=== PATIENT | male | born 1965 | race Caucasian/White ===

== ENCOUNTER 2020-11-16 12:37 | Outpatient (CLI) | payer OTHER, SELFPAY ==
--- NOTE | ~2020-11-16 | MR_ITS ---
EXAMINATION: MR lumbar spine [facility] EXAM DATE: 11/16/2020 13:27 INDICATION: Chronic low back pain. TECHNIQUE: Multi-sequential, multiplanar MR images of the lumbar spine were obtained without contrast . Sagittal T1, T2, T2 fat saturation images. Axial T2 weighted images. There is no prior study for comparison. FINDINGS: There is mild to moderate upper lumbar levoscoliosis. There are no suspicious marrow signal abnormalities. Mild to moderate disc disease at all lumbar levels. There is 3 mm retrolisthesis L3 o n L4. The vertebral bodies are otherwise aligned. Paraspinal soft tissue is unremarkable. The conus medullaris terminates at the L1 level and has normal signal intensity and morphology. Level by level evaluation: T12-L1: Small right central protrusion. Facet arthropathy: Mild bilateral. Neural foraminal stenosis: No stenosis. Central canal stenosis: Mild. L1-L2: There is a mild diffuse disc bulge. Facet arthropathy: Mild to moderate. Neural foraminal stenosis: No stenosis. Central canal stenosis: No stenosis. L2-L3: There is a mild to moderate diffuse disc bulge. Facet arthropathy: Moderate . Ligamentum flavum enlargement. Neural foraminal stenosis: Mild to moderate right. Central canal stenosis: Mild. L3-L4: There is a moderate to large diffuse disc bulge. Facet arthropathy: Moderate to severe . Ligamentum flavum enlargement. Neural foraminal stenosis: Moderate bilateral. Central canal stenosis: Moderate. L4-L5: There is a large diffuse disc bulge. Facet arthropathy: Severe left, moderate right. Neural foraminal stenosis: Severe left, moderate right. Central canal stenosis: Severe. L5-S1: There is a mild diffuse disc bulge. Facet arthropathy: Moderate left, mild right. Neural foraminal stenosis: Moderate left, mild right. Central canal stenosis: Mild. IMPRESSION: 1. L4-5 large disc bulge, severe central canal and left neural foraminal stenosis. 2. Less spondylosis other levels. 3. Mild to moderate lumbar levoscoliosis. Reviewed, dictated and finalized at location B. IMPRESSION: 1. L4-5 large disc bulge, severe central canal and left neural foraminal steno sis. 2. Less spondylosis other levels. 3. Mild to moderate lumbar levoscoliosis.
== END 2020-11-16 12:38 | disposition home or self-care (01) ==
DX: M47.817 Spondylosis without myelopathy or radiculopathy, lumbosacral region (principal); M48.07 Spinal stenosis, lumbosacral region; M47.815 Spondylosis without myelopathy or radiculopathy, thoracolumbar region; M48.05 Spinal stenosis, thoracolumbar region; M41.9 Scoliosis, unspecified
CPT/HCPCS: 72148